=== PATIENT | female | born 1950 | race Caucasian/White ===

== ENCOUNTER 2021-10-16 15:44 | Emergency (ER) | payer BC, MEDICARE ==
[2021-10-16 16:05] VITALS: BP 138/78; PULSE 88
[2021-10-16 17:36] LABS: CORONAVIRUS COVID-19 NAA POSITIVE (NEGATIVE)
== END 2021-10-16 18:08 | disposition home or self-care (01) ==
LOC: JP.ED 15:44
DX: U07.1 COVID-19 (principal); I25.10 Atherosclerotic heart disease of native coronary artery without angina pectoris; I25.2 Old myocardial infarction; I10 Essential (primary) hypertension; Z90.710 Acquired absence of both cervix and uterus; Z79.899 Other long term (current) drug therapy; Z79.82 Long term (current) use of aspirin; Z91.018 Allergy to other foods
CPT/HCPCS: 0241U; 36415; 71046; 80048; 85025; 99281; 99284